=== PATIENT | female | born 1985 | race Caucasian/White ===

== ENCOUNTER 2017-12-26 09:50 | Outpatient (CLI) | payer MEDICAID ==
[2017-12-26 10:52] LABS: ADD UMIC NO; UR ASCORBIC ACID NEGATIVE (NEGATIVE); UR BACTERIA FEW /HPF (NONE SEEN); UR BILIRUBIN (Dip) NEGATIVE (NEGATIVE); UR BLOOD (Dip) NEGATIVE (NEGATIVE); UR BUDDING YEAST MANY /HPF (NONE SEEN); UR CLARITY SLIGHTLY CLOUDY (CLEAR); UR COLOR YELLOW (YELLOW); UR GLUCOSE (Dip) NEGATIVE (NEGATIVE); UR KETONES (Dip) NEGATIVE (NEGATIVE); UR LEUKOCYTE ESTERASE (Dip) NEGATIVE Leu/ul (NEGATIVE); UR MUCUS FEW /HPF (NONE SEEN); UR NITRITE (Dip) NEGATIVE (NEGATIVE); UR RBC 0 /HPF (0-5); UR SPECIFIC GRAVITY (Dip) 1.011 (1.003-1.030); UR SQUAMOUS EPITHELIAL CELL FEW /HPF (FEW); UR TOTAL PROTEIN (Dip) NEGATIVE (NEGATIVE); UR UROBILINOGEN (Dip) NEGATIVE (NEGATIVE); UR WBC 1 /HPF (0-5)
[2017-12-26 11:32] LABS: ADD MAN DIFF? NO
[2017-12-26 11:33] LABS: WHITE BLOOD COUNT 10.7 10^3/ul (4.8-10.8)
[2017-12-26 11:33] LABS: BASOPHILS % 0.2 % (0.0-2.0); EOSINOPHILS # 0.1 10^3/ul (0.0-0.5); EOSINOPHILS % 1.3 % (0.0-7.0); HEMATOCRIT 37.1 % (37.0-47.0); HEMOGLOBIN 12.5 g/dl (12.0-16.0); LYMPHOCYTES # 2.3 10^3/ul (0.8-2.9); LYMPHOCYTES % 21.9 % (15.0-51.0); MEAN CORPUSCULAR HEMOGLOBIN 30.3 pg (29.0-33.0); MEAN CORPUSCULAR HGB CONC 33.7 g/dl (32.0-37.0); MEAN CORPUSCULAR VOLUME 89.8 fl (82.0-101.0); MEAN PLATELET VOLUME 10.3 fl (7.4-10.4); MONOCYTE # 0.8 10^3/ul (0.3-0.9); MONOCYTES % 7.8 % (0.0-11.0); NEUTROPHIL # 7.2 10^3/ul (1.6-7.5); NEUTROPHILS % 67.9 % (39.0-77.0); PLATELET COUNT 249 10^3/UL (140-415); RED BLOOD COUNT 4.13 10^6/ul (4.20-5.40); RED CELL DISTRIBUTION WIDTH 13.1 % (11.5-14.5)
== END 2017-12-26 13:15 | disposition home or self-care (01) ==
LOC: OBT 09:50 → L-D 09:50 → OBT 13:15
DX: O62.9 Abnormality of forces of labor, unspecified (principal); Z3A.21 21 weeks gestation of pregnancy
CPT/HCPCS: 81001; 81003; 85025; 87086

== ENCOUNTER 2018-01-03 13:15 | Inpatient (IN) | payer MEDICAID ==
[2018-01-03] MEDS: LACTATED RINGER'S 1,000 ML IV (15:03)
[2018-01-03] MEDS: MAGNESIUM SULFATE 4 GM/100 ML 100 ML IV (15:17)
[2018-01-03] MEDS: MAGNESIUM SULFATE 20 GM/500 ML 500 ML IV (15:45)
[2018-01-03 15:46] LABS: ADD MAN DIFF? NO
[2018-01-03 15:53] LABS: WHITE BLOOD COUNT 12.7 10^3/ul (4.8-10.8)
[2018-01-03 15:53] LABS: BASOPHILS % 0.2 % (0.0-2.0); EOSINOPHILS # 0.1 10^3/ul (0.0-0.5); EOSINOPHILS % 0.9 % (0.0-7.0); HEMOGLOBIN 13.1 g/dl (12.0-16.0); LYMPHOCYTES % 23.8 % (15.0-51.0); MEAN CORPUSCULAR HEMOGLOBIN 30.1 pg (29.0-33.0); MEAN CORPUSCULAR HGB CONC 33.6 g/dl (32.0-37.0); MEAN CORPUSCULAR VOLUME 89.7 fl (82.0-101.0); MEAN PLATELET VOLUME 10.6 fl (7.4-10.4); MONOCYTE # 0.9 10^3/ul (0.3-0.9); NEUTROPHIL # 8.5 10^3/ul (1.6-7.5); NEUTROPHILS % 67.2 % (39.0-77.0); PLATELET COUNT 252 10^3/UL (140-415); RED BLOOD COUNT 4.35 10^6/ul (4.20-5.40); RED CELL DISTRIBUTION WIDTH 13.2 % (11.5-14.5)
[2018-01-03 16:15] LABS: ALANINE AMINOTRANSFERASE 21 IU/L (13-69); ALBUMIN 3.9 g/dl (3.3-4.9); ALBUMIN/GLOBULIN RATIO 1.18; ALKALINE PHOSPHATASE 69 IU/L (42-121); ANION GAP 12 (8-16); ASPARTATE AMINO TRANSFERASE 21 IU/L (15-46); BILIRUBIN,INDIRECT 0.2 mg/dl (0-1.1); BILIRUBIN,TOTAL 0.2 mg/dl (0.2-1.3); BLOOD UREA NITROGEN 7 mg/dl (7-20); CALCIUM 9.5 mg/dl (8.4-10.2); CARBON DIOXIDE 23 mmol/L (21-31); CHLORIDE 107 mmol/L (97-110); CREATININE 0.58 mg/dl (0.44-1.00); GLUCOSE 71 mg/dl (70-220); POTASSIUM 4.3 mmol/L (3.5-5.1); SODIUM 138 mmol/L (135-144); TOTAL PROTEIN 7.2 g/dl (6.1-8.1)
[2018-01-03] MEDS: INDOMETHACIN 50 MG PO (18:21)
[2018-01-03 18:31] LABS: MAGNESIUM 3.9 mg/dl (1.7-2.5)
[2018-01-03] MEDS: AMOXICILLIN/CLAV 500 MG TAB PO (20:45)
[2018-01-04] MEDS: INDOMETHACIN 50 MG PO ×5 (00:06→23:34)
[2018-01-04] MEDS: MAGNESIUM SULFATE 20 GM/500 ML 500 ML IV ×3 (00:07→20:20)
[2018-01-04 01:33] LABS: MAGNESIUM 4.8 mg/dl (1.7-2.5)
[2018-01-04] MEDS: LACTATED RINGER'S 1,000 ML IV ×2 (01:42→13:08)
[2018-01-04] MEDS: BETAMET NA PHOS/AC(6 MG/ML) 5ML INJ IM (08:05)
[2018-01-04 08:15] LABS: MAGNESIUM 5.2 mg/dl (1.7-2.5)
[2018-01-04] MEDS: AMOXICILLIN/CLAV 500 MG TAB PO ×3 (08:56→21:48)
[2018-01-04 12:37] LABS: MAGNESIUM 5.3 mg/dl (1.7-2.5)
[2018-01-04] MEDS: PRENATAL VITAMIN PO (17:19)
[2018-01-04] MEDS: FERROUS SULFATE (EC) 325 MG TAB PO (17:19)
[2018-01-04 18:21] LABS: MAGNESIUM 5.2 mg/dl (1.7-2.5)
[2018-01-04] MEDS: SENNA TAB PO (21:48)
[2018-01-04] MEDS: PROGESTERONE 100 MG CAP VAG (21:48)
[2018-01-05 01:05] LABS: MAGNESIUM 5.5 mg/dl (1.7-2.5)
[2018-01-05] MEDS: LACTATED RINGER'S 1,000 ML IV ×2 (02:32→14:46)
[2018-01-05] MEDS: MAGNESIUM HYDROXIDE 30ML CUP PO (05:10)
[2018-01-05] MEDS: INDOMETHACIN 50 MG PO ×2 (05:31→12:00)
[2018-01-05] MEDS: MAGNESIUM SULFATE 20 GM/500 ML 500 ML IV ×2 (06:46→19:30)
[2018-01-05] MEDS: PRENATAL VITAMIN PO (08:33)
[2018-01-05] MEDS: BETAMET NA PHOS/AC(6 MG/ML) 5ML INJ IM (08:33)
[2018-01-05] MEDS: FERROUS SULFATE (EC) 325 MG TAB PO (08:34)
[2018-01-05] MEDS: SENNA TAB PO ×2 (09:00→21:16)
[2018-01-05] MEDS: AMOXICILLIN/CLAV 500 MG TAB PO ×3 (10:33→21:16)
[2018-01-05 13:01] LABS: MAGNESIUM 5.3 mg/dl (1.7-2.5)
[2018-01-05] MEDS: NIFEdipine 10 MG CAP PO (17:27)
[2018-01-05] MEDS: INDOMETHACIN 25 MG PO ×2 (18:45→21:16)
[2018-01-05] MEDS: PROGESTERONE 100 MG CAP VAG (21:16)
[2018-01-06] MEDS: NIFEdipine 10 MG CAP PO ×4 (00:04→18:20)
[2018-01-06] MEDS: LACTATED RINGER'S 1,000 ML IV ×3 (00:04→20:30)
[2018-01-06] MEDS: FERROUS SULFATE (EC) 325 MG TAB PO (08:41)
[2018-01-06] MEDS: INDOMETHACIN 25 MG PO ×4 (08:41→22:30)
[2018-01-06] MEDS: PRENATAL VITAMIN PO (08:41)
[2018-01-06] MEDS: SENNA TAB PO ×3 (08:42→21:54)
[2018-01-06] MEDS: AMOXICILLIN/CLAV 500 MG TAB PO ×3 (09:44→21:51)
[2018-01-06] MEDS: FAMOTIDINE 20 MG TAB PO (15:33)
[2018-01-07] MEDS: NIFEdipine 10 MG CAP PO ×4 (00:38→18:15)
[2018-01-07] MEDS: PROGESTERONE 100 MG CAP VAG ×2 (01:47→22:04)
[2018-01-07] MEDS: LACTATED RINGER'S 1,000 ML IV ×3 (05:02→18:01)
[2018-01-07] MEDS: INDOMETHACIN 25 MG PO ×3 (09:03→17:13)
[2018-01-07] MEDS: FERROUS SULFATE (EC) 325 MG TAB PO (09:03)
[2018-01-07] MEDS: PRENATAL VITAMIN PO (09:03)
[2018-01-07] MEDS: AMOXICILLIN/CLAV 500 MG TAB PO ×3 (09:31→22:04)
[2018-01-07] MEDS ORDERED: CEFAZOLIN 2 GM/50 ML (PMX) 50 ML IV (15:00)
[2018-01-07] MEDS ORDERED: OXYTOCIN 30 UNITS/LR 500 ML IV (15:00)
[2018-01-07] MEDS: SENNA TAB PO (22:05)
[2018-01-08] MEDS: INDOMETHACIN 25 MG PO ×4 (00:28→17:46)
[2018-01-08] MEDS: NIFEdipine 10 MG CAP PO ×4 (00:28→17:45)
[2018-01-08] MEDS: LACTATED RINGER'S 1,000 ML IV ×3 (02:01→17:35)
[2018-01-08] MEDS: PRENATAL VITAMIN PO (09:17)
[2018-01-08] MEDS: FERROUS SULFATE (EC) 325 MG TAB PO (09:17)
[2018-01-08] MEDS: SENNA TAB PO ×2 (09:17→20:52)
[2018-01-08] MEDS: AMOXICILLIN/CLAV 500 MG TAB PO ×3 (09:17→20:52)
[2018-01-08] MEDS: PROGESTERONE 100 MG CAP VAG (20:53)
[2018-01-09] MEDS: NIFEdipine 10 MG CAP PO ×5 (00:03→23:57)
[2018-01-09] MEDS: INDOMETHACIN 25 MG PO ×2 (00:03→05:51)
[2018-01-09] MEDS: LACTATED RINGER'S 1,000 ML IV ×3 (02:01→18:09)
[2018-01-09] MEDS: AMOXICILLIN/CLAV 500 MG TAB PO ×3 (08:48→21:04)
[2018-01-09] MEDS: PRENATAL VITAMIN PO (08:49)
[2018-01-09] MEDS: SENNA TAB PO (08:49)
[2018-01-09] MEDS: FERROUS SULFATE (EC) 325 MG TAB PO (08:49)
[2018-01-09] MEDS: PROGESTERONE 100 MG CAP VAG (21:04)
[2018-01-10] MEDS: NIFEdipine 10 MG CAP PO ×4 (06:11→23:40)
[2018-01-10] MEDS: AMOXICILLIN/CLAV 500 MG TAB PO ×3 (08:38→21:10)
[2018-01-10] MEDS: PRENATAL VITAMIN PO (08:38)
[2018-01-10] MEDS: FERROUS SULFATE (EC) 325 MG TAB PO (08:38)
[2018-01-10] MEDS: FAMOTIDINE 20 MG TAB PO (12:19)
[2018-01-10] MEDS: PROGESTERONE 100 MG CAP VAG (21:10)
[2018-01-11] MEDS: NIFEdipine 10 MG CAP PO ×4 (06:05→23:59)
[2018-01-11] MEDS: AMOXICILLIN/CLAV 500 MG TAB PO ×2 (08:30→12:42)
[2018-01-11] MEDS: PRENATAL VITAMIN PO (08:30)
[2018-01-11] MEDS: FERROUS SULFATE (EC) 325 MG TAB PO (08:30)
[2018-01-11] MEDS: MAGNESIUM HYDROXIDE 30ML CUP PO (19:36)
[2018-01-11] MEDS: SENNA TAB PO (19:36)
[2018-01-11] MEDS: PROGESTERONE 100 MG CAP VAG (21:11)
[2018-01-12] MEDS: NIFEdipine 10 MG CAP PO ×4 (06:04→23:58)
[2018-01-12] MEDS: PRENATAL VITAMIN PO (09:47)
[2018-01-12] MEDS: FERROUS SULFATE (EC) 325 MG TAB PO (09:47)
[2018-01-12] MEDS: PROGESTERONE 100 MG CAP VAG (20:49)
[2018-01-12] MEDS: FLUCONAZOLE 150 MG TAB PO (20:49)
[2018-01-12] MEDS: CLOTRIMAZOLE 1% 30 GM CR TOP (20:49)
[2018-01-13] MEDS: NIFEdipine 10 MG CAP PO (05:47)
[2018-01-13] MEDS: FERROUS SULFATE (EC) 325 MG TAB PO (09:03)
[2018-01-13] MEDS: PRENATAL VITAMIN PO (09:04)
[2018-01-13] MEDS: INDOMETHACIN 25 MG PO ×2 (12:08→17:48)
[2018-01-13] MEDS: LACTATED RINGER'S 1,000 ML IV (12:08)
[2018-01-13] MEDS: MAGNESIUM SULFATE 4 GM/100 ML 100 ML IV (12:14)
[2018-01-13] MEDS: MAGNESIUM SULFATE 20 GM/500 ML 500 ML IV ×2 (12:38→22:26)
[2018-01-13] MEDS: CLOTRIMAZOLE 1% 30 GM CR TOP ×2 (17:48→21:12)
[2018-01-13 19:15] LABS: MAGNESIUM 4.4 mg/dl (1.7-2.5)
[2018-01-13] MEDS: PROGESTERONE 100 MG CAP VAG (21:12)
[2018-01-13] MEDS: SENNA TAB PO (22:31)
[2018-01-14] MEDS: LACTATED RINGER'S 1,000 ML IV ×2 (00:04→15:51)
[2018-01-14] MEDS: INDOMETHACIN 25 MG PO ×4 (00:09→17:55)
[2018-01-14 00:59] LABS: MAGNESIUM 4.5 mg/dl (1.7-2.5)
[2018-01-14] MEDS: MAGNESIUM SULFATE 20 GM/500 ML 500 ML IV ×2 (08:12→18:03)
[2018-01-14] MEDS: CLOTRIMAZOLE 1% 30 GM CR TOP ×2 (08:13→22:08)
[2018-01-14] MEDS: PRENATAL VITAMIN PO (09:04)
[2018-01-14] MEDS: FERROUS SULFATE (EC) 325 MG TAB PO (09:04)
[2018-01-14 09:30] LABS: MAGNESIUM 5.1 mg/dl (1.7-2.5)
[2018-01-14 13:31] LABS: MAGNESIUM 5.4 mg/dl (1.7-2.5)
[2018-01-14 18:47] LABS: MAGNESIUM 5.3 mg/dl (1.7-2.5)
[2018-01-14] MEDS: PROGESTERONE 100 MG CAP VAG (22:08)
[2018-01-15] MEDS: INDOMETHACIN 25 MG PO ×5 (00:19→23:55)
[2018-01-15] MEDS: CLOTRIMAZOLE 1% 30 GM CR TOP (01:00)
[2018-01-15 01:30] LABS: MAGNESIUM 4.8 mg/dl (1.7-2.5)
[2018-01-15] MEDS: LACTATED RINGER'S 1,000 ML IV ×2 (03:08→15:18)
[2018-01-15] MEDS: MAGNESIUM SULFATE 20 GM/500 ML 500 ML IV ×2 (03:11→14:21)
[2018-01-15] MEDS: FERROUS SULFATE (EC) 325 MG TAB PO (09:15)
[2018-01-15] MEDS: PRENATAL VITAMIN PO (09:15)
[2018-01-15] MEDS: FAMOTIDINE 20 MG TAB PO (10:15)
[2018-01-15] MEDS: ACETAMINOPHEN 325 MG TAB PO (20:41)
[2018-01-16] MEDS: MAGNESIUM SULFATE 20 GM/500 ML 500 ML IV ×3 (00:03→19:26)
[2018-01-16] MEDS: PROGESTERONE 100 MG CAP VAG ×2 (00:58→21:42)
[2018-01-16 01:17] LABS: MAGNESIUM 4.7 mg/dl (1.7-2.5)
[2018-01-16] MEDS: LACTATED RINGER'S 1,000 ML IV ×2 (03:31→19:26)
[2018-01-16] MEDS: INDOMETHACIN 25 MG PO ×3 (05:51→18:18)
[2018-01-16 08:34] LABS: MAGNESIUM 5.3 mg/dl (1.7-2.5)
[2018-01-16] MEDS: FERROUS SULFATE (EC) 325 MG TAB PO (10:48)
[2018-01-16] MEDS: PRENATAL VITAMIN PO (10:49)
[2018-01-16] MEDS: MAGNESIUM HYDROXIDE 30ML CUP PO (10:49)
[2018-01-16 12:58] LABS: MAGNESIUM 4.9 mg/dl (1.7-2.5)
[2018-01-16] MEDS: NIFEdipine 10 MG CAP PO ×2 (15:36→21:57)
[2018-01-16] MEDS: CLOTRIMAZOLE 1% 30 GM CR TOP (21:00)
[2018-01-17] MEDS: INDOMETHACIN 25 MG PO ×4 (00:13→18:15)
[2018-01-17] MEDS: LACTATED RINGER'S 1,000 ML IV ×2 (02:01→14:17)
[2018-01-17] MEDS: NIFEdipine 10 MG CAP PO ×4 (03:52→21:31)
[2018-01-17] MEDS: FERROUS SULFATE (EC) 325 MG TAB PO (09:12)
[2018-01-17] MEDS: PRENATAL VITAMIN PO (09:20)
[2018-01-17] MEDS: INDOMETHACIN 50 MG PO (18:16)
[2018-01-17] MEDS: PROGESTERONE 100 MG CAP VAG (21:20)
[2018-01-17] MEDS: MAGNESIUM HYDROXIDE 30ML CUP PO (21:23)
[2018-01-17] MEDS: SENNA TAB PO (21:23)
[2018-01-18] MEDS: INDOMETHACIN 50 MG PO ×4 (00:10→18:08)
[2018-01-18] MEDS: NIFEdipine 10 MG CAP PO ×4 (03:32→18:08)
[2018-01-18] MEDS: FAMOTIDINE 20 MG TAB PO (09:45)
[2018-01-18] MEDS: PRENATAL VITAMIN PO (09:45)
[2018-01-18] MEDS: FERROUS SULFATE (EC) 325 MG TAB PO (09:45)
[2018-01-19] MEDS: INDOMETHACIN 50 MG PO ×4 (00:01→17:39)
[2018-01-19] MEDS: PROGESTERONE 100 MG CAP VAG (00:01)
[2018-01-19] MEDS: NIFEdipine 10 MG CAP PO ×4 (00:02→17:35)
[2018-01-19] MEDS: FAMOTIDINE 20 MG TAB PO (00:05)
[2018-01-19] MEDS: LACTATED RINGER'S 1,000 ML IV ×6 (00:29→20:15)
[2018-01-19] MEDS: FERROUS SULFATE (EC) 325 MG TAB PO (09:07)
[2018-01-19] MEDS: PRENATAL VITAMIN PO (09:07)
[2018-01-20] MEDS: PROGESTERONE 100 MG CAP VAG ×2 (00:01→21:22)
[2018-01-20] MEDS: NIFEdipine 10 MG CAP PO ×4 (00:02→18:09)
[2018-01-20] MEDS ORDERED: INDOMETHACIN 25 MG PO ×2 (00:08→06:00)
[2018-01-20] MEDS: INDOMETHACIN 25 MG PO ×4 (00:11→18:09)
[2018-01-20] MEDS: LACTATED RINGER'S 1,000 ML IV ×3 (04:15→22:19)
[2018-01-20] MEDS: MAGNESIUM HYDROXIDE 30ML CUP PO (09:42)
[2018-01-20] MEDS: FERROUS SULFATE (EC) 325 MG TAB PO (09:43)
[2018-01-20] MEDS: PRENATAL VITAMIN PO (09:43)
[2018-01-20] MEDS: FAMOTIDINE 20 MG TAB PO (15:04)
[2018-01-20] MEDS: BETAMET NA PHOS/AC(6 MG/ML) 5ML INJ IM (21:17)
[2018-01-21] MEDS: NIFEdipine 10 MG CAP PO ×5 (01:07→23:53)
[2018-01-21] MEDS: LACTATED RINGER'S 1,000 ML IV ×4 (04:15→23:53)
[2018-01-21] MEDS: PRENATAL VITAMIN PO (09:57)
[2018-01-21] MEDS: FERROUS SULFATE (EC) 325 MG TAB PO (09:57)
[2018-01-21] MEDS: SENNA TAB PO (18:03)
[2018-01-21] MEDS: BETAMET NA PHOS/AC(6 MG/ML) 5ML INJ IM (22:08)
[2018-01-21] MEDS: PROGESTERONE 100 MG CAP VAG (22:11)
[2018-01-21] MEDS: FAMOTIDINE 20 MG TAB PO (22:19)
[2018-01-22] MEDS: NIFEdipine 10 MG CAP PO ×3 (06:27→18:01)
[2018-01-22] MEDS: LACTATED RINGER'S 1,000 ML IV ×2 (07:42→16:21)
[2018-01-22] MEDS: FERROUS SULFATE (EC) 325 MG TAB PO (09:59)
[2018-01-22] MEDS: PRENATAL VITAMIN PO (10:00)
[2018-01-22] MEDS: PROGESTERONE 100 MG CAP VAG (22:32)
[2018-01-23] MEDS: NIFEdipine 10 MG CAP PO ×5 (00:14→23:52)
[2018-01-23] MEDS: FAMOTIDINE 20 MG TAB PO ×2 (00:19→09:24)
[2018-01-23] MEDS: LACTATED RINGER'S 1,000 ML IV ×3 (00:22→17:31)
[2018-01-23] MEDS: FERROUS SULFATE (EC) 325 MG TAB PO (09:24)
[2018-01-23] MEDS: PRENATAL VITAMIN PO (09:24)
[2018-01-23] MEDS: SENNA TAB PO (09:35)
[2018-01-23] MEDS: PROGESTERONE 100 MG CAP VAG (22:00)
[2018-01-24] MEDS: NIFEdipine 10 MG CAP PO ×4 (05:49→23:53)
[2018-01-24] MEDS: SENNA TAB PO (08:50)
[2018-01-24] MEDS: FERROUS SULFATE (EC) 325 MG TAB PO (08:50)
[2018-01-24] MEDS: PRENATAL VITAMIN PO (08:50)
[2018-01-24] MEDS: LACTATED RINGER'S 1,000 ML IV ×2 (08:51→23:53)
[2018-01-24] MEDS: PROGESTERONE 100 MG CAP VAG (21:23)
[2018-01-25] MEDS: NIFEdipine 10 MG CAP PO ×4 (05:54→23:53)
[2018-01-25] MEDS: PRENATAL VITAMIN PO (08:43)
[2018-01-25] MEDS: FERROUS SULFATE (EC) 325 MG TAB PO (08:43)
[2018-01-25] MEDS: MAGNESIUM HYDROXIDE 30ML CUP PO (15:44)
[2018-01-25] MEDS: LACTATED RINGER'S 1,000 ML IV (16:27)
[2018-01-25] MEDS: PROGESTERONE 100 MG CAP VAG (22:03)
[2018-01-26] MEDS: NIFEdipine 10 MG CAP PO ×3 (06:04→17:55)
[2018-01-26] MEDS: FERROUS SULFATE (EC) 325 MG TAB PO (08:13)
[2018-01-26] MEDS: PRENATAL VITAMIN PO (08:13)
[2018-01-26] MEDS: LACTATED RINGER'S 1,000 ML IV ×2 (10:06→21:35)
[2018-01-26] MEDS: PROGESTERONE 100 MG CAP VAG (21:01)
[2018-01-27] MEDS: FAMOTIDINE 20 MG TAB PO ×2 (00:13→22:29)
[2018-01-27] MEDS: NIFEdipine 10 MG CAP PO ×5 (00:13→23:37)
[2018-01-27] MEDS: INDOMETHACIN 50 MG PO ×4 (06:11→23:37)
[2018-01-27] MEDS: PRENATAL VITAMIN PO (09:38)
[2018-01-27] MEDS: FERROUS SULFATE (EC) 325 MG TAB PO (09:38)
[2018-01-27] MEDS: SENNA TAB PO (09:38)
[2018-01-27] MEDS: LACTATED RINGER'S 1,000 ML IV (11:17)
[2018-01-27] MEDS: PROGESTERONE 100 MG CAP VAG (21:35)
[2018-01-28] MEDS: LACTATED RINGER'S 1,000 ML IV ×2 (03:53→20:33)
[2018-01-28] MEDS: INDOMETHACIN 50 MG PO ×4 (06:00→23:21)
[2018-01-28] MEDS: NIFEdipine 10 MG CAP PO ×4 (06:00→23:22)
[2018-01-28] MEDS: PRENATAL VITAMIN PO (09:25)
[2018-01-28] MEDS: FERROUS SULFATE (EC) 325 MG TAB PO (09:25)
[2018-01-28] MEDS: PROGESTERONE 100 MG CAP VAG (21:21)
[2018-01-29] MEDS: INDOMETHACIN 50 MG PO ×5 (05:56→23:35)
[2018-01-29] MEDS: NIFEdipine 10 MG CAP PO ×4 (05:57→23:37)
[2018-01-29] MEDS: FERROUS SULFATE (EC) 325 MG TAB PO (09:53)
[2018-01-29] MEDS: PRENATAL VITAMIN PO (09:53)
[2018-01-29] MEDS: SENNA TAB PO (09:54)
[2018-01-29] MEDS: LACTATED RINGER'S 1,000 ML IV (12:32)
[2018-01-29] MEDS: PROGESTERONE 100 MG CAP VAG (21:44)
[2018-01-30] MEDS: LACTATED RINGER'S 1,000 ML IV ×2 (03:18→19:00)
[2018-01-30] MEDS: INDOMETHACIN 50 MG PO ×3 (05:38→18:55)
[2018-01-30] MEDS: NIFEdipine 10 MG CAP PO ×3 (05:39→18:55)
[2018-01-30] MEDS: MAGNESIUM HYDROXIDE 30ML CUP PO (12:01)
[2018-01-30] MEDS: FERROUS SULFATE (EC) 325 MG TAB PO (12:02)
[2018-01-30] MEDS: PRENATAL VITAMIN PO (12:02)
[2018-01-30] MEDS: PROGESTERONE 100 MG CAP VAG (21:46)
[2018-01-30] MEDS: SENNA TAB PO (21:46)
[2018-01-31] MEDS: INDOMETHACIN 50 MG PO ×2 (00:23→06:08)
[2018-01-31] MEDS: NIFEdipine 10 MG CAP PO ×5 (00:26→23:56)
[2018-01-31] MEDS: SENNA TAB PO (09:21)
[2018-01-31] MEDS: FERROUS SULFATE (EC) 325 MG TAB PO (09:21)
[2018-01-31] MEDS: PRENATAL VITAMIN PO (09:22)
[2018-01-31] MEDS: FAMOTIDINE 20 MG TAB PO (12:00)
[2018-01-31] MEDS: LACTATED RINGER'S 1,000 ML IV (12:01)
[2018-01-31] MEDS: PROGESTERONE 100 MG CAP VAG (21:16)
[2018-02-01] MEDS: LACTATED RINGER'S 1,000 ML IV ×2 (04:05→21:06)
[2018-02-01] MEDS: NIFEdipine 10 MG CAP PO ×3 (06:02→18:02)
[2018-02-01] MEDS: FERROUS SULFATE (EC) 325 MG TAB PO (12:02)
[2018-02-01] MEDS: PRENATAL VITAMIN PO (12:03)
[2018-02-01] MEDS: FAMOTIDINE 20 MG TAB PO (21:37)
[2018-02-01] MEDS: PROGESTERONE 100 MG CAP VAG (21:39)
[2018-02-02] MEDS: NIFEdipine 10 MG CAP PO ×4 (01:16→18:05)
[2018-02-02] MEDS: PRENATAL VITAMIN PO (10:17)
[2018-02-02] MEDS: FERROUS SULFATE (EC) 325 MG TAB PO (10:17)
[2018-02-02] MEDS: LACTATED RINGER'S 1,000 ML IV (12:09)
[2018-02-02] MEDS: PROGESTERONE 100 MG CAP VAG (22:10)
[2018-02-03] MEDS: NIFEdipine 10 MG CAP PO ×4 (00:24→17:45)
[2018-02-03] MEDS: LACTATED RINGER'S 1,000 ML IV ×2 (04:52→21:50)
[2018-02-03] MEDS: PRENATAL VITAMIN PO (09:09)
[2018-02-03] MEDS: FERROUS SULFATE (EC) 325 MG TAB PO (09:09)
[2018-02-03] MEDS: FAMOTIDINE 20 MG TAB PO (09:09)
[2018-02-03] MEDS: PROGESTERONE 100 MG CAP VAG (22:39)
[2018-02-04] MEDS: NIFEdipine 10 MG CAP PO ×5 (00:11→23:57)
[2018-02-04] MEDS: FERROUS SULFATE (EC) 325 MG TAB PO (09:28)
[2018-02-04] MEDS: PRENATAL VITAMIN PO (09:28)
[2018-02-04] MEDS: LACTATED RINGER'S 1,000 ML IV (15:11)
[2018-02-04] MEDS: PROGESTERONE 100 MG CAP VAG (21:11)
[2018-02-05] MEDS: NIFEdipine 10 MG CAP PO ×3 (06:09→18:04)
[2018-02-05] MEDS: FERROUS SULFATE (EC) 325 MG TAB PO (09:03)
[2018-02-05] MEDS: PRENATAL VITAMIN PO (09:03)
[2018-02-05] MEDS: LACTATED RINGER'S 1,000 ML IV (09:21)
[2018-02-05] MEDS: PROGESTERONE 100 MG CAP VAG (21:20)
[2018-02-06] MEDS: LACTATED RINGER'S 1,000 ML IV ×2 (00:10→18:08)
[2018-02-06] MEDS: NIFEdipine 10 MG CAP PO ×5 (00:10→23:45)
[2018-02-06] MEDS: FERROUS SULFATE (EC) 325 MG TAB PO (08:58)
[2018-02-06] MEDS: PRENATAL VITAMIN PO (08:59)
[2018-02-06] MEDS: PROGESTERONE 100 MG CAP VAG (21:18)
[2018-02-07] MEDS: NIFEdipine 10 MG CAP PO ×3 (06:00→18:05)
[2018-02-07] MEDS: FERROUS SULFATE (EC) 325 MG TAB PO (09:25)
[2018-02-07] MEDS: PRENATAL VITAMIN PO (09:25)
[2018-02-07] MEDS: LACTATED RINGER'S 1,000 ML IV (16:50)
[2018-02-07] MEDS: PROGESTERONE 100 MG CAP VAG (21:19)
[2018-02-08] MEDS: NIFEdipine 10 MG CAP PO ×4 (00:10→18:10)
[2018-02-08] MEDS: FAMOTIDINE 20 MG TAB PO ×2 (00:53→09:26)
[2018-02-08] MEDS: LACTATED RINGER'S 1,000 ML IV ×2 (06:35→09:16)
[2018-02-08] MEDS: FERROUS SULFATE (EC) 325 MG TAB PO (09:14)
[2018-02-08] MEDS: PRENATAL VITAMIN PO (09:15)
[2018-02-08] MEDS: MAGNESIUM HYDROXIDE 30ML CUP PO (20:10)
[2018-02-08] MEDS: PROGESTERONE 100 MG CAP VAG (21:16)
[2018-02-09] MEDS: NIFEdipine 10 MG CAP PO ×4 (00:12→18:19)
[2018-02-09] MEDS: LACTATED RINGER'S 1,000 ML IV ×3 (02:09→19:50)
[2018-02-09] MEDS: PRENATAL VITAMIN PO (09:00)
[2018-02-09] MEDS: FERROUS SULFATE (EC) 325 MG TAB PO (09:00)
[2018-02-09] MEDS: PROGESTERONE 100 MG CAP VAG (21:05)
[2018-02-10] MEDS: NIFEdipine 10 MG CAP PO ×4 (00:13→18:10)
[2018-02-10] MEDS: FAMOTIDINE 20 MG TAB PO ×2 (00:20→22:10)
[2018-02-10] MEDS: PRENATAL VITAMIN PO (09:00)
[2018-02-10] MEDS: FERROUS SULFATE (EC) 325 MG TAB PO (09:01)
[2018-02-10] MEDS: LACTATED RINGER'S 1,000 ML IV (12:18)
[2018-02-10] MEDS: PROGESTERONE 100 MG CAP VAG (21:51)
[2018-02-11] MEDS: NIFEdipine 10 MG CAP PO ×4 (01:08→18:00)
[2018-02-11] MEDS: LACTATED RINGER'S 1,000 ML IV ×2 (05:08→19:43)
[2018-02-11] MEDS: FERROUS SULFATE (EC) 325 MG TAB PO (09:13)
[2018-02-11] MEDS: PRENATAL VITAMIN PO (09:13)
[2018-02-11] MEDS: PROGESTERONE 100 MG CAP VAG (21:22)
[2018-02-11] MEDS: FAMOTIDINE 20 MG TAB PO (22:22)
[2018-02-12] MEDS: NIFEdipine 10 MG CAP PO ×4 (00:02→17:57)
[2018-02-12] MEDS: PRENATAL VITAMIN PO (09:02)
[2018-02-12] MEDS: FERROUS SULFATE (EC) 325 MG TAB PO (09:02)
[2018-02-12] MEDS: LACTATED RINGER'S 1,000 ML IV (13:00)
[2018-02-12] MEDS: PROGESTERONE 100 MG CAP VAG (21:14)
[2018-02-12] MEDS: FAMOTIDINE 20 MG TAB PO (21:25)
[2018-02-13] MEDS: NIFEdipine 10 MG CAP PO ×5 (00:03→23:45)
[2018-02-13] MEDS: LACTATED RINGER'S 1,000 ML IV (05:46)
[2018-02-13] MEDS: PRENATAL VITAMIN PO (09:30)
[2018-02-13] MEDS: FERROUS SULFATE (EC) 325 MG TAB PO (09:30)
[2018-02-13] MEDS: FAMOTIDINE 20 MG TAB PO (21:37)
[2018-02-13] MEDS: PROGESTERONE 100 MG CAP VAG (21:38)
[2018-02-13] MEDS: MAGNESIUM HYDROXIDE 30ML CUP PO (21:48)
[2018-02-14] MEDS: NIFEdipine 10 MG CAP PO ×4 (06:11→23:47)
[2018-02-14] MEDS: PRENATAL VITAMIN PO (09:22)
[2018-02-14] MEDS: FERROUS SULFATE (EC) 325 MG TAB PO (09:22)
[2018-02-14] MEDS: FAMOTIDINE 20 MG TAB PO (19:21)
[2018-02-14] MEDS: PROGESTERONE 100 MG CAP VAG (21:17)
[2018-02-15] MEDS: NIFEdipine 10 MG CAP PO ×4 (05:35→23:55)
[2018-02-15 07:35] LABS: GLUCOSE, FASTING 160 mg/dl (70-110)
[2018-02-15] MEDS: PRENATAL VITAMIN PO (11:26)
[2018-02-15] MEDS: FERROUS SULFATE (EC) 325 MG TAB PO (11:26)
[2018-02-15] MEDS ORDERED: ACCU-CHEK XX (19:35)
[2018-02-15] MEDS: PROGESTERONE 100 MG CAP VAG (20:52)
[2018-02-16] MEDS: INSULIN ASPART [NOVOLOG] 3 ML PEN SC ×4 (01:09→19:35)
[2018-02-16] MEDS: NIFEdipine 10 MG CAP PO ×4 (05:50→23:59)
[2018-02-16] MEDS: PRENATAL VITAMIN PO (08:36)
[2018-02-16] MEDS: MAGNESIUM HYDROXIDE 30ML CUP PO (11:54)
[2018-02-16] MEDS: ACCU-CHEK XX ×2 (19:35→21:00)
[2018-02-16] MEDS: NPH, HUMAN INSULIN ISOPHANE 3ML VIAL SC (21:33)
[2018-02-16] MEDS: PROGESTERONE 100 MG CAP VAG (21:39)
[2018-02-17] MEDS: ACCU-CHEK XX (06:00)
[2018-02-17] MEDS: NIFEdipine 10 MG CAP PO ×3 (06:06→19:03)
[2018-02-17] MEDS: NPH, HUMAN INSULIN ISOPHANE 3ML VIAL SC ×2 (08:27→21:47)
[2018-02-17] MEDS: INSULIN ASPART [NOVOLOG] 3 ML PEN SC ×2 (08:28→17:30)
[2018-02-17] MEDS: PRENATAL VITAMIN PO (09:27)
[2018-02-17] MEDS: FERROUS SULFATE (EC) 325 MG TAB PO (09:28)
[2018-02-17] MEDS ORDERED: INSULIN ASPART [NOVOLOG] 3 ML PEN SC (17:05)
[2018-02-17] MEDS: PROGESTERONE 100 MG CAP VAG (21:50)
[2018-02-18] MEDS: NIFEdipine 10 MG CAP PO ×4 (00:13→18:51)
[2018-02-18] MEDS: ACCU-CHEK XX ×5 (08:10→21:00)
[2018-02-18] MEDS: NPH, HUMAN INSULIN ISOPHANE 3ML VIAL SC ×2 (08:17→21:17)
[2018-02-18] MEDS: INSULIN ASPART [NOVOLOG] 3 ML PEN SC ×2 (08:18→17:23)
[2018-02-18] MEDS: PRENATAL VITAMIN PO (08:21)
[2018-02-18] MEDS: FERROUS SULFATE (EC) 325 MG TAB PO (08:21)
[2018-02-18] MEDS: PROGESTERONE 100 MG CAP VAG (21:11)
[2018-02-19] MEDS: NIFEdipine 10 MG CAP PO ×5 (00:09→23:37)
[2018-02-19] MEDS: ACCU-CHEK XX ×8 (06:00→22:08)
[2018-02-19] MEDS: NPH, HUMAN INSULIN ISOPHANE 3ML VIAL SC ×2 (08:02→21:13)
[2018-02-19] MEDS: INSULIN ASPART [NOVOLOG] 3 ML PEN SC ×2 (08:03→17:55)
[2018-02-19] MEDS: PRENATAL VITAMIN PO (08:44)
[2018-02-19] MEDS: FERROUS SULFATE (EC) 325 MG TAB PO (08:44)
[2018-02-19] MEDS: PROGESTERONE 100 MG CAP VAG (21:14)
[2018-02-20] MEDS: NIFEdipine 10 MG CAP PO ×4 (06:26→23:34)
[2018-02-20] MEDS: INSULIN ASPART [NOVOLOG] 3 ML PEN SC ×2 (08:03→17:33)
[2018-02-20] MEDS: NPH, HUMAN INSULIN ISOPHANE 3ML VIAL SC ×2 (08:05→21:36)
[2018-02-20] MEDS: FERROUS SULFATE (EC) 325 MG TAB PO (08:38)
[2018-02-20] MEDS: PRENATAL VITAMIN PO (08:38)
[2018-02-20] MEDS: ACCU-CHEK XX ×8 (19:57→21:31)
[2018-02-20] MEDS: PROGESTERONE 100 MG CAP VAG (21:24)
[2018-02-21] MEDS: ACCU-CHEK XX ×8 (06:00→21:14)
[2018-02-21] MEDS: NIFEdipine 10 MG CAP PO ×3 (06:16→17:42)
[2018-02-21] MEDS: NPH, HUMAN INSULIN ISOPHANE 3ML VIAL SC ×2 (07:57→21:12)
[2018-02-21] MEDS: INSULIN ASPART [NOVOLOG] 3 ML PEN SC ×2 (07:59→17:15)
[2018-02-21] MEDS: FERROUS SULFATE (EC) 325 MG TAB PO (09:01)
[2018-02-21] MEDS: PRENATAL VITAMIN PO (09:01)
[2018-02-21] MEDS: PROGESTERONE 100 MG CAP VAG (22:19)
[2018-02-22] MEDS: NIFEdipine 10 MG CAP PO ×5 (06:00→23:56)
[2018-02-22] MEDS: FERROUS SULFATE (EC) 325 MG TAB PO (08:59)
[2018-02-22] MEDS: PRENATAL VITAMIN PO (08:59)
[2018-02-22] MEDS: ACCU-CHEK XX ×8 (09:00→21:00)
[2018-02-22] MEDS: NPH, HUMAN INSULIN ISOPHANE 3ML VIAL SC ×2 (09:08→22:02)
[2018-02-22] MEDS: INSULIN ASPART [NOVOLOG] 3 ML PEN SC ×2 (09:10→18:20)
[2018-02-22] MEDS: PROGESTERONE 100 MG CAP VAG (22:00)
[2018-02-23] MEDS: NIFEdipine 10 MG CAP PO ×3 (05:54→23:54)
[2018-02-23] MEDS: ACCU-CHEK XX ×8 (08:11→21:31)
[2018-02-23] MEDS: FERROUS SULFATE (EC) 325 MG TAB PO (08:40)
[2018-02-23] MEDS: PRENATAL VITAMIN PO (08:40)
[2018-02-23] MEDS: NPH, HUMAN INSULIN ISOPHANE 3ML VIAL SC ×2 (08:54→21:30)
[2018-02-23] MEDS: INSULIN ASPART [NOVOLOG] 3 ML PEN SC ×2 (09:04→17:54)
[2018-02-23] MEDS: PROGESTERONE 100 MG CAP VAG (21:00)
[2018-02-24] MEDS: NIFEdipine 10 MG CAP PO ×5 (06:00→23:59)
[2018-02-24] MEDS: ACCU-CHEK XX ×8 (09:08→21:18)
[2018-02-24] MEDS: FERROUS SULFATE (EC) 325 MG TAB PO (09:14)
[2018-02-24] MEDS: PRENATAL VITAMIN PO (09:14)
[2018-02-24] MEDS: NPH, HUMAN INSULIN ISOPHANE 3ML VIAL SC ×2 (09:17→21:22)
[2018-02-24] MEDS: INSULIN ASPART [NOVOLOG] 3 ML PEN SC ×2 (09:19→17:59)
[2018-02-24] MEDS: PROGESTERONE 100 MG CAP VAG (21:24)
[2018-02-25] MEDS: NIFEdipine 10 MG CAP PO ×4 (05:29→23:55)
[2018-02-25] MEDS: ACCU-CHEK XX ×8 (08:29→21:24)
[2018-02-25] MEDS: NPH, HUMAN INSULIN ISOPHANE 3ML VIAL SC ×2 (08:41→21:28)
[2018-02-25] MEDS: INSULIN ASPART [NOVOLOG] 3 ML PEN SC ×2 (08:42→17:51)
[2018-02-25] MEDS: FERROUS SULFATE (EC) 325 MG TAB PO (08:43)
[2018-02-25] MEDS: PRENATAL VITAMIN PO (08:43)
[2018-02-25] MEDS: PROGESTERONE 100 MG CAP VAG (21:29)
[2018-02-25] MEDS ORDERED: DEXTROSE 50% 50 ML SYRINGE IV ×2 (23:30)
[2018-02-25] MEDS ORDERED: GLUCOSE GEL 15 GRAM TUBE PO ×2 (23:30)
[2018-02-25] MEDS ORDERED: GLUCOSE GEL 15 GRAM TUBE BUCCAL (23:30)
[2018-02-25] MEDS ORDERED: GLUCAGON 1 MG INJ IM (23:30)
[2018-02-26] MEDS: NIFEdipine 10 MG CAP PO ×4 (05:54→23:54)
[2018-02-26] MEDS: ACCU-CHEK XX ×9 (07:30→21:21)
[2018-02-26] MEDS: INSULIN ASPART [NOVOLOG] 3 ML PEN SC ×2 (08:42→17:56)
[2018-02-26] MEDS: NPH, HUMAN INSULIN ISOPHANE 3ML VIAL SC ×2 (08:43→21:28)
[2018-02-26] MEDS: FERROUS SULFATE (EC) 325 MG TAB PO (08:45)
[2018-02-26] MEDS: PRENATAL VITAMIN PO (08:45)
[2018-02-26] MEDS: FAMOTIDINE 20 MG TAB PO (21:25)
[2018-02-26] MEDS: PROGESTERONE 100 MG CAP VAG (21:25)
[2018-02-27] MEDS: NIFEdipine 10 MG CAP PO ×4 (05:44→23:51)
[2018-02-27] MEDS: ACCU-CHEK XX ×7 (08:00→20:26)
[2018-02-27] MEDS: NPH, HUMAN INSULIN ISOPHANE 3ML VIAL SC ×2 (08:50→20:58)
[2018-02-27] MEDS: INSULIN ASPART [NOVOLOG] 3 ML PEN SC ×2 (08:55→18:09)
[2018-02-27] MEDS: FERROUS SULFATE (EC) 325 MG TAB PO (09:01)
[2018-02-27] MEDS: PRENATAL VITAMIN PO (09:02)
[2018-02-27] MEDS: SENNA TAB PO (09:32)
[2018-02-27] MEDS: PROGESTERONE 100 MG CAP VAG (20:26)
[2018-02-28] MEDS: NIFEdipine 10 MG CAP PO ×3 (06:05→18:17)
[2018-02-28] MEDS: ACCU-CHEK XX ×8 (09:00→21:00)
[2018-02-28] MEDS: NPH, HUMAN INSULIN ISOPHANE 3ML VIAL SC ×2 (09:04→21:38)
[2018-02-28] MEDS: PRENATAL VITAMIN PO (09:06)
[2018-02-28] MEDS: INSULIN ASPART [NOVOLOG] 3 ML PEN SC ×2 (09:06→18:39)
[2018-02-28] MEDS: FERROUS SULFATE (EC) 325 MG TAB PO (09:07)
[2018-02-28] MEDS: PROGESTERONE 100 MG CAP VAG (21:41)
[2018-03-01] MEDS: NIFEdipine 10 MG CAP PO ×4 (00:03→18:00)
[2018-03-01] MEDS: ACCU-CHEK XX ×8 (09:08→21:23)
[2018-03-01] MEDS: NPH, HUMAN INSULIN ISOPHANE 3ML VIAL SC ×2 (09:15→21:17)
[2018-03-01] MEDS: FERROUS SULFATE (EC) 325 MG TAB PO (09:17)
[2018-03-01] MEDS: PRENATAL VITAMIN PO (09:17)
[2018-03-01] MEDS: INSULIN ASPART [NOVOLOG] 3 ML PEN SC ×2 (09:17→18:02)
[2018-03-01] MEDS: SENNA TAB PO (10:48)
[2018-03-01] MEDS: PROGESTERONE 100 MG CAP VAG (21:16)
[2018-03-02] MEDS: NIFEdipine 10 MG CAP PO ×4 (00:27→18:27)
[2018-03-02] MEDS: FERROUS SULFATE (EC) 325 MG TAB PO (11:12)
[2018-03-02] MEDS: INSULIN ASPART [NOVOLOG] 3 ML PEN SC ×2 (11:16→18:00)
[2018-03-02] MEDS: NPH, HUMAN INSULIN ISOPHANE 3ML VIAL SC (11:18)
== END 2018-03-02 19:50 | disposition home or self-care (01) | DRG 832 ==
LOC: OBT 13:15 → PP1 01-07 17:19 → L-D 01-14 10:13 → PP1 02-21 21:28 → L-D 13:15 → PP1 02-21 22:11 → OBT 13:45 → L-D 13:45
DX: O26.873 Cervical shortening, third trimester (principal); O47.02 False labor before 37 completed weeks of gestation, second trimester; O24.414 Gestational diabetes mellitus in pregnancy, insulin controlled; Z3A.29 29 weeks gestation of pregnancy
CPT/HCPCS: 76815; 76816; 76817; 76818; 80053; 82947; 82950; 82962; 83735; 85025; 97161

== ENCOUNTER 2018-04-18 11:53 | Outpatient (CLI) | payer MEDICAID | END 2018-04-18 15:18 | disposition home or self-care (01) | LOC: OBT 11:53 → L-D 11:53 → OBT 15:18 | DX: O24.414 Gestational diabetes mellitus in pregnancy, insulin controlled (principal); Z3A.37 37 weeks gestation of pregnancy | CPT/HCPCS: Z7500 ==

== ENCOUNTER 2018-04-21 09:03 | Outpatient (CLI) | payer MEDICAID ==
[2018-04-21 11:54] LABS: RUPTURE FETAL MEMBRANES NEGATIVE (NEGATIVE)
== END 2018-04-21 12:31 | disposition home or self-care (01) ==
LOC: OBT 09:03 → L-D 09:04 → OBT 12:31
DX: O36.8130 Decreased fetal movements, third trimester, not applicable or unspecified (principal); O24.419 Gestational diabetes mellitus in pregnancy, unspecified control; Z3A.38 38 weeks gestation of pregnancy
CPT/HCPCS: 76815; 76818; 84112

== ENCOUNTER 2018-04-21 20:31 | Outpatient (CLI) | payer MEDICAID ==
[2018-04-21] MEDS: ONDANSETRON 4 MG INJ IV (21:53)
[2018-04-21] MEDS: LACTATED RINGER'S 1,000 ML IV (21:53)
[2018-04-21] MEDS: LIDOCAINE/MYLANTA 40 ML BTL PO (21:55)
[2018-04-21] MEDS: PANTOPRAZOLE 40 MG INJ IV (23:48)
[2018-04-22] MEDS: ACETAMINOPHEN 1000MG/100ML IV 100 ML IVPB (01:11)
[2018-04-22] MEDS: LACTATED RINGER'S 1,000 ML IV (01:15)
[2018-04-22 01:29] LABS: ADD MAN DIFF? NO
[2018-04-22 01:31] LABS: BASOPHILS % 0.1 % (0.0-2.0); EOSINOPHILS % 0.1 % (0.0-7.0); HEMATOCRIT 38.2 % (37.0-47.0); HEMOGLOBIN 12.7 g/dl (12.0-16.0); LYMPHOCYTES # 0.9 10^3/ul (0.8-2.9); LYMPHOCYTES % 8.5 % (15.0-51.0); MEAN CORPUSCULAR HEMOGLOBIN 29.9 pg (29.0-33.0); MEAN CORPUSCULAR HGB CONC 33.2 g/dl (32.0-37.0); MEAN CORPUSCULAR VOLUME 89.9 fl (82.0-101.0); MEAN PLATELET VOLUME 11.4 fl (7.4-10.4); MONOCYTE # 0.4 10^3/ul (0.3-0.9); MONOCYTES % 3.6 % (0.0-11.0); NEUTROPHILS % 87.1 % (39.0-77.0); PLATELET COUNT 198 10^3/UL (140-415); RED BLOOD COUNT 4.25 10^6/ul (4.20-5.40)
[2018-04-22 01:31] LABS: WHITE BLOOD COUNT 10.3 10^3/ul (4.8-10.8)
[2018-04-22 01:55] LABS: ALANINE AMINOTRANSFERASE 25 IU/L (13-69); ALBUMIN 3.4 g/dl (3.3-4.9); ALBUMIN/GLOBULIN RATIO 1.21; ALKALINE PHOSPHATASE 94 IU/L (42-121); ANION GAP 13 (5-13); ASPARTATE AMINO TRANSFERASE 24 IU/L (15-46); BILIRUBIN,INDIRECT 0.2 mg/dl (0-1.1); BILIRUBIN,TOTAL 0.2 mg/dl (0.2-1.3); BLOOD UREA NITROGEN 12 mg/dl (7-20); CALCIUM 9.3 mg/dl (8.4-10.2); CARBON DIOXIDE 23 mmol/L (21-31); CHLORIDE 105 mmol/L (97-110); CREATININE 0.63 mg/dl (0.44-1.00); Estimated GFR > 60 mL/min (>60); GLUCOSE 69 mg/dl (70-220); POTASSIUM 4.1 mmol/L (3.5-5.1); SODIUM 141 mmol/L (135-144); TOTAL PROTEIN 6.2 g/dl (6.1-8.1)
== END 2018-04-22 02:59 | disposition home or self-care (01) ==
LOC: OBT 04-22 02:59 → L-D 20:31
DX: O36.8130 Decreased fetal movements, third trimester, not applicable or unspecified (principal); O26.893 Other specified pregnancy related conditions, third trimester; R10.2 Pelvic and perineal pain; O21.8 Other vomiting complicating pregnancy; Z3A.38 38 weeks gestation of pregnancy
CPT/HCPCS: 36415; 76818; 80053; 85025; 96361; 96374; 96375

== ENCOUNTER 2018-04-26 09:12 | Inpatient (IN) | payer MEDICAID ==
[2018-04-26] MEDS ORDERED: LACTATED RINGER'S 1,000 ML IV (09:34)
[2018-04-26] MEDS ORDERED: CARBOPROST 250 MCG INJ IM (10:00)
[2018-04-26] MEDS ORDERED: MISOPROSTOL 200 MCG TAB PR (10:00)
[2018-04-26] MEDS ORDERED: METHYLERGONOVINE 0.2 MG INJ IM (10:00)
[2018-04-26] MEDS ORDERED: OXYTOCIN 30 UNITS/LR 500 ML IV (10:00)
[2018-04-26 10:34] LABS: ADD MAN DIFF? NO
[2018-04-26 10:38] LABS: BASOPHILS % 0.1 % (0.0-2.0); EOSINOPHILS # 0.1 10^3/ul (0.0-0.5); EOSINOPHILS % 1.1 % (0.0-7.0); HEMATOCRIT 38.4 % (37.0-47.0); LYMPHOCYTES # 1.9 10^3/ul (0.8-2.9); MEAN CORPUSCULAR HEMOGLOBIN 30.2 pg (29.0-33.0); MEAN CORPUSCULAR HGB CONC 33.9 g/dl (32.0-37.0); MEAN CORPUSCULAR VOLUME 89.3 fl (82.0-101.0); MEAN PLATELET VOLUME 11.7 fl (7.4-10.4); MONOCYTE # 0.5 10^3/ul (0.3-0.9); MONOCYTES % 5.4 % (0.0-11.0); NEUTROPHILS % 70.6 % (39.0-77.0); PLATELET COUNT 205 10^3/UL (140-415); RED CELL DISTRIBUTION WIDTH 13.9 % (11.5-14.5)
[2018-04-26 10:38] LABS: WHITE BLOOD COUNT 8.5 10^3/ul (4.8-10.8)
[2018-04-26 10:59] LABS: INR 0.85; PROTIME 11.7 Sec (11.9-14.9); PT RATIO 0.9
[2018-04-26 11:00] LABS: PARTIAL THROMBOPLASTIN TIME 25.8 Sec (23.0-35.0)
[2018-04-26 11:39] LABS: HEPATITIS B SURFACE ANTIGEN NEGATIVE (NEGATIVE)
[2018-04-26 11:50] LABS: GLUCOSE 79 mg/dl (70-220)
[2018-04-26] MEDS: MISOPROSTOL 50 MCG CAPSULE PO ×3 (12:13→21:26)
[2018-04-26] MEDS: LACTATED RINGER'S 1,000 ML IV ×2 (12:14→18:03)
[2018-04-26 15:16] LABS: RAPID PLASMA REAGIN NONREACTIVE (NR)
[2018-04-26 17:47] LABS: GLUCOSE 79 mg/dl (70-220)
[2018-04-26 17:56] LABS: ALANINE AMINOTRANSFERASE 33 IU/L (13-69); ALBUMIN 3.5 g/dl (3.3-4.9); ALBUMIN/GLOBULIN RATIO 0.94; ALKALINE PHOSPHATASE 122 IU/L (42-121); ANION GAP 9 (5-13); ASPARTATE AMINO TRANSFERASE 41 IU/L (15-46); BILIRUBIN,INDIRECT 0.1 mg/dl (0-1.1); BILIRUBIN,TOTAL 0.1 mg/dl (0.2-1.3); BLOOD UREA NITROGEN 8 mg/dl (7-20); CALCIUM 9.6 mg/dl (8.4-10.2); CARBON DIOXIDE 21 mmol/L (21-31); CHLORIDE 108 mmol/L (97-110); CREATININE 0.69 mg/dl (0.44-1.00); Estimated GFR > 60 mL/min (>60); POTASSIUM 4.5 mmol/L (3.5-5.1); SODIUM 138 mmol/L (135-144); TOTAL PROTEIN 7.2 g/dl (6.1-8.1); URIC ACID 5.7 mg/dl (3.1-7.9)
[2018-04-26 18:43] LABS: ADD UMIC NO; UR ASCORBIC ACID NEGATIVE (NEGATIVE); UR BILIRUBIN (Dip) NEGATIVE (NEGATIVE); UR BLOOD (Dip) NEGATIVE (NEGATIVE); UR CLARITY CLEAR (CLEAR); UR COLOR STRAW (YELLOW); UR GLUCOSE (Dip) NEGATIVE (NEGATIVE); UR KETONES (Dip) NEGATIVE (NEGATIVE); UR LEUKOCYTE ESTERASE (Dip) NEGATIVE Leu/ul (NEGATIVE); UR NITRITE (Dip) NEGATIVE (NEGATIVE); UR SPECIFIC GRAVITY (Dip) 1.004 (1.003-1.030); UR TOTAL PROTEIN (Dip) NEGATIVE (NEGATIVE); UR UROBILINOGEN (Dip) NEGATIVE (NEGATIVE)
[2018-04-27] MEDS: MISOPROSTOL 50 MCG CAPSULE PO (01:05)
[2018-04-27] MEDS: LACTATED RINGER'S 1,000 ML IV ×3 (01:49→06:21)
[2018-04-27] MEDS ORDERED: FENTAnyl 2MCG/ML-ROPIV 0.2% 100 ML (02:46)
[2018-04-27] MEDS ORDERED: NALOXONE (0.4 MG/ML) INJ IV (03:30)
[2018-04-27] MEDS ORDERED: FENTAnyl 2MCG/ML-ROPIV 0.2% 100 ML BAG EPI (03:30)
[2018-04-27] MEDS ORDERED: ONDANSETRON 4 MG INJ IV (03:30)
[2018-04-27] MEDS ORDERED: MINERAL OIL LIGHT 10 ML VIAL (04:13)
[2018-04-27] MEDS: BUTORPHANOL 2 MG INJ IV (05:47)
[2018-04-27] MEDS ORDERED: INSULIN ASPART [NOVOLOG] 3 ML PEN SC (07:05)
[2018-04-27] MEDS: OXYTOCIN 30 UNITS/LR 500 ML IV ×2 (08:18→08:19)
[2018-04-27] MEDS: MINERAL OIL LIGHT 10 ML VIAL TOP (08:19)
[2018-04-27] MEDS: LIDOCAINE 1% (MPF) 30 ML INJ INJ (08:19)
[2018-04-27] MEDS: ACETAMINOPHEN 1000MG/100ML IV 100 ML IVPB ×2 (09:13→10:00)
[2018-04-27] MEDS: LACTATED RINGER'S 1,000 ML IV* ×2 (09:55→17:55)
[2018-04-27] MEDS ORDERED: ZOLPIDEM 5 MG TAB PO (10:00)
[2018-04-27] MEDS: NPH, HUMAN INSULIN ISOPHANE 3ML VIAL SC ×2 (10:00→10:30)
[2018-04-27] MEDS ORDERED: HYDROCODONE/APAP (5/325) TAB PO (10:00)
[2018-04-27] MEDS: INSULIN LISPRO 100 UNIT/ML VIAL SC ×2 (10:00→10:30)
[2018-04-27] MEDS ORDERED: METHYLERGONOVINE 0.2 MG INJ IM (10:00)
[2018-04-27] MEDS ORDERED: OXYTOCIN 30 UNITS/LR 500 ML IV (10:00)
[2018-04-27] MEDS: ACETAMINOPHEN 325 MG TAB PO ×3 (10:00→22:00)
[2018-04-27] MEDS ORDERED: MISOPROSTOL 200 MCG TAB PR (10:00)
[2018-04-27] MEDS ORDERED: CARBOPROST 250 MCG INJ IM (10:00)
[2018-04-27] MEDS ORDERED: GLUCAGON 1 MG INJ IM (10:30)
[2018-04-27] MEDS ORDERED: DEXTROSE 50% 50 ML SYRINGE IV ×2 (10:30)
[2018-04-27] MEDS ORDERED: GLUCOSE GEL 15 GRAM TUBE BUCCAL (10:30)
[2018-04-27] MEDS ORDERED: GLUCOSE GEL 15 GRAM TUBE PO ×2 (10:30)
[2018-04-27] MEDS: ACCU-CHEK XX ×3 (10:37→21:06)
[2018-04-27] MEDS: CEPHALEXIN 500 MG CAP PO ×3 (11:17→23:43)
[2018-04-27] MEDS: metFORMIN (XR) 500 MG TAB PO ×2 (11:51→21:09)
[2018-04-27] MEDS: HYDROCODONE/APAP (5/325) TAB PO (16:24)
[2018-04-27] MEDS: SENNA/DOCUSATE NA (8.6MG/50MG) TAB PO (21:09)
[2018-04-27] MEDS: MAGNESIUM HYDROXIDE 30ML CUP PO (21:09)
[2018-04-28] MEDS: LACTATED RINGER'S 1,000 ML IV* ×2 (01:55→08:15)
[2018-04-28] MEDS: ACETAMINOPHEN 325 MG TAB PO ×4 (04:05→21:59)
[2018-04-28] MEDS: BENZOCAINE 20% 56 ML SPRAY TOP (04:05)
[2018-04-28] MEDS: DIBUCAINE 1% 30 GM OINT TOP (04:06)
[2018-04-28] MEDS: LANOLIN HPA 1 PKT TOP (04:06)
[2018-04-28] MEDS: WITCH HAZEL/GLYCERIN PAD PR (04:06)
[2018-04-28] MEDS: CEPHALEXIN 500 MG CAP PO ×3 (06:12→17:38)
[2018-04-28 07:23] LABS: ADD MAN DIFF? NO
[2018-04-28 07:27] LABS: BASOPHILS % 0.2 % (0.0-2.0); EOSINOPHILS # 0.1 10^3/ul (0.0-0.5); EOSINOPHILS % 1.1 % (0.0-7.0); HEMATOCRIT 37.6 % (37.0-47.0); HEMOGLOBIN 12.7 g/dl (12.0-16.0); LYMPHOCYTES # 3.6 10^3/ul (0.8-2.9); LYMPHOCYTES % 29.4 % (15.0-51.0); MEAN CORPUSCULAR HEMOGLOBIN 30.4 pg (29.0-33.0); MEAN CORPUSCULAR HGB CONC 33.8 g/dl (32.0-37.0); MEAN PLATELET VOLUME 11.4 fl (7.4-10.4); MONOCYTE # 0.8 10^3/ul (0.3-0.9); MONOCYTES % 6.4 % (0.0-11.0); NEUTROPHIL # 7.6 10^3/ul (1.6-7.5); NEUTROPHILS % 62.2 % (39.0-77.0); PLATELET COUNT 215 10^3/UL (140-415); RED BLOOD COUNT 4.18 10^6/ul (4.20-5.40); RED CELL DISTRIBUTION WIDTH 14.2 % (11.5-14.5)
[2018-04-28 07:27] LABS: WHITE BLOOD COUNT 12.2 10^3/ul (4.8-10.8)
[2018-04-28] MEDS: ACCU-CHEK XX ×3 (07:36→15:25)
[2018-04-28] MEDS: SENNA/DOCUSATE NA (8.6MG/50MG) TAB PO ×2 (08:40→21:01)
[2018-04-28] MEDS: MAGNESIUM HYDROXIDE 30ML CUP PO ×2 (08:40→20:56)
[2018-04-28] MEDS: metFORMIN (XR) 500 MG TAB PO ×2 (08:40→21:01)
[2018-04-29] MEDS: CEPHALEXIN 500 MG CAP PO ×3 (00:20→11:44)
[2018-04-29] MEDS: ACETAMINOPHEN 325 MG TAB PO ×2 (05:00→11:43)
[2018-04-29] MEDS: MAGNESIUM HYDROXIDE 30ML CUP PO (08:36)
[2018-04-29] MEDS: metFORMIN (XR) 500 MG TAB PO (08:36)
[2018-04-29] MEDS: SENNA/DOCUSATE NA (8.6MG/50MG) TAB PO (08:37)
[2018-04-29] MEDS: DIPHTH/TET/ACEL PERTUSS (ADULT) 0.5 ML VIAL IM* (08:39)
[2018-04-29] MEDS: VARICELLA VACCINE LIVE/PF 1,350 UNIT/0.5 ML ML SC* (08:39)
[2018-04-29] MEDS: MEASLES,MUMPS,RUBELLA VACCINE INJ SC* (09:00)
== END 2018-04-29 16:27 | disposition home or self-care (01) | DRG 807 ==
LOC: L-D 09:12 → PP1 04-27 09:48
PROVIDERS: Obstetrics & Gynecology
PROC: 10E0XZZ Delivery of Products of Conception, External Approach (ICD-10-PCS; principal; 2018-04-27)
PROC: 0HQ9XZZ Repair Perineum Skin, External Approach (ICD-10-PCS; 2018-04-27)
DX: O24.424 Gestational diabetes mellitus in childbirth, insulin controlled (principal); O70.0 First degree perineal laceration during delivery; O69.81X0 Labor and delivery complicated by cord around neck, without compression, not applicable or unspecified; Z37.0 Single live birth; Z3A.39 39 weeks gestation of pregnancy
CPT/HCPCS: 59025; 76816; 80053; 81003; 82947; 82962; 84560; 85025; 85384; 85610; 85730; 86592; 86850; 86900; 86901; 87340